=== PATIENT | male | born 2000 | race African-American/Black ===

== ENCOUNTER 2018-01-02 14:01 | Emergency (ER) | payer OTHER ==
[~2018-01-02] VITALS: Ht 172.7 cm; Wt 70.3 kg
[2018-01-02] MEDS ORDERED: PHENERGAN 25 MG25 M1 PO (16:39)
[2018-01-02] MEDS ORDERED: ROBAXIN 750 MG750 M1 PO (16:39)
[2018-01-02] MEDS ORDERED: IBUPROFEN 600600 M1 PO (16:39)
[2018-01-02 16:59] VITALS: BP 135/84
== END 2018-01-02 17:00 | disposition home or self-care (01) ==
LOC: M.ERS 14:01
DX: S09.90XA Unspecified injury of head, initial encounter (principal); M25.561 Pain in right knee; F17.200 Nicotine dependence, unspecified, uncomplicated; V49.59XA Passenger injured in collision with other motor vehicles in traffic accident, initial encounter; Y93.89 Activity, other specified; Y92.89 Other specified places as the place of occurrence of the external cause; Y99.8 Other external cause status

== ENCOUNTER 2019-03-26 16:11 | Emergency (ER) | payer OTHER ==
[~2019-03-26] VITALS: Ht 172.7 cm; Wt 70.3 kg
[~2019-03-26 16:11] MED LIST: IBUPROFEN 600600 M1 PO; PHENERGAN 25 MG25 M1 PO; ROBAXIN 750 MG750 M1 PO
[2019-03-26 16:49] LABS: INFLUENZA A ANTIGEN Negative (Negative); INFLUENZA B ANTIGEN Negative (Negative)
[2019-03-26] MEDS ORDERED: PROAIR HFA8.5 GM INH (17:44)
[2019-03-26 17:56] VITALS: BP 129/72
== END 2019-03-26 17:57 | disposition home or self-care (01) ==
LOC: M.ERS 16:11
PROVIDERS: Physician Assistant
DX: R05 Cough (principal)